=== PATIENT | female | born 1985 | race Caucasian/White ===

== ENCOUNTER 2016-09-17 06:05 | Day surgery (SDC) | payer OTHER ==
[2016-09-17] MEDS ORDERED: SCOPOLAMINE PATCH TOP ONE (06:28)
[2016-09-17] MEDS ORDERED: ceFAZolin 2 GM/50 ML 50 ML IV ONE (06:28)
[2016-09-17] MEDS ORDERED: CELECOXIB 100 MG CAPSULE PO ONE (06:29)
[2016-09-17] MEDS ORDERED: ACETAMINOPHEN 1,000 MG/100 ML 100 ML IV ONE (06:56)
[2016-09-17] MEDS ORDERED: LACTATED RINGERS 1,000 ML IV ONE ×2 (07:14→09:26)
[2016-09-17] MEDS ORDERED: ONDANSETRON 4 MG/2 ML VIAL IVP ONE (07:47)
[2016-09-17] MEDS ORDERED: ACETAMINOPHEN 1,000 MG/100 ML VIAL IV ONE (07:47)
[2016-09-17] MEDS ORDERED: LIDOCAINE-MPF 2% 5 ML VIAL IM ONE (07:47)
[2016-09-17] MEDS ORDERED: DEXAMETHASONE 4 MG/ML VIAL IVP ONE (07:47)
[2016-09-17] MEDS ORDERED: MIDAZOLAM 2 MG/2 ML VIAL IVP ONE (07:47)
[2016-09-17] MEDS ORDERED: ceFAZolin 2 GM/50 ML BAG IV ONE (07:47)
[2016-09-17] MEDS ORDERED: PROPOFOL 200 MG/20 ML VIAL IVP ONE (07:47)
[2016-09-17] MEDS ORDERED: fentaNYL 250 MCG/5 ML VIAL IVP ONE (07:47)
[2016-09-17] MEDS ORDERED: ROPIVACAINE 0.5% PF 20 ML AMPULE EP ONE (07:47)
[2016-09-17] MEDS: HYDROmorphone 1 MG/ML SYRINGE ONE ×4 (09:45→10:20)
[2016-09-17] MEDS ORDERED: ONDANSETRON 4 MG/2 ML VIAL ONE (10:09)
[2016-09-17] MEDS ORDERED: oxyCOD/ACETAMIN 5 MG/325 MG TABLET PO ONE (11:10)
== END 2016-09-17 06:06 | disposition home or self-care (01) ==
PROC: 0QSJ04Z Reposition Right Fibula with Internal Fixation Device, Open Approach (ICD-10-PCS; principal; 2016-09-17 07:30)
DX: S82.61XA Displaced fracture of lateral malleolus of right fibula, initial encounter for closed fracture (principal); W01.0XXA Fall on same level from slipping, tripping and stumbling without subsequent striking against object, initial encounter
CPT/HCPCS: 27792; 73600; 73610; 81025; A9270; C1713; J0131; J0690; J1170; J3010; J3490; J7120

== ENCOUNTER 2016-11-23 18:26 | Emergency (ER) | payer OTHER ==
[2016-11-23] MEDS ORDERED: HYDROmorphone 1 MG/ML SYRINGE IVP STA ×2 (19:00→20:29)
[2016-11-23] MEDS ORDERED: SODIUM CHLORIDE 0.9% 1,000 ML IV ONE (19:00)
[2016-11-23] MEDS ORDERED: ONDANSETRON 4 MG/2 ML VIAL IVP STA (19:00)
[2016-11-23] MEDS ORDERED: HYDROmorphone 1 MG/ML SYRINGE ONE ×2 (19:21→20:32)
[2016-11-23] MEDS ORDERED: ONDANSETRON 4 MG/2 ML VIAL ONE (19:21)
[2016-11-23] MEDS ORDERED: IOPAMIDOL-300 100 ML VIAL IVP ONE (20:27)
[2016-11-23] MEDS ORDERED: diazePAM INJ 5 MG/ML SYRINGE IVP STA (21:06)
[2016-11-23] MEDS ORDERED: LORazepam 0.5 MG TABLET PO STA (21:06)
[2016-11-23] MEDS ORDERED: LORazepam 0.5 MG TABLET ONE (21:18)
[2016-11-23] MEDS ORDERED: diazePAM INJ 5 MG/ML SYRINGE ONE (21:18)
== END 2016-11-23 21:41 | disposition home or self-care (01) ==
DX: R11.2 Nausea with vomiting, unspecified (principal); R10.31 Right lower quadrant pain; R03.0 Elevated blood-pressure reading, without diagnosis of hypertension; M79.7 Fibromyalgia; K58.9 Irritable bowel syndrome, unspecified; N80.9 Endometriosis, unspecified; G47.30 Sleep apnea, unspecified
CPT/HCPCS: 36415; 74177; 80053; 80306; 81003; 81025; 82803; 83690; 85025; 96361; 96374; 96375; 96376; 99284; A9270; J1170; Q9967

== ENCOUNTER 2018-11-11 10:50 | Outpatient (CLI) | payer OTHER ==
--- NOTE | 2018-11-11 21:59 | MRI Report ---
Reason: PAIN IN RIGHT FOOT Procedure Date: 11/11/2018 Accession Number: [id number] / [id number] Procedure: MRI - Ankle RT W/O CPT Code: FULL RESULT: EXAM: RIGHT ANKLE/HINDFOOT MRI WITHOUT CONTRAST. EXAM DATE: 11/11/2018 11:42 AM. CLINICAL HISTORY: Right foot and ankle pain. Past history of ankle surgery. COMPARISON: ANKLE 2 VIEW RT 09/17/2016 11:27 AM ANKLE 3 VIEW RT 09/17/2016 10:33 AM. TECHNIQUE: Multiplanar, multisequence T1-weighted and fluid-sensitive sequences of the ankle/hindfoot without contrast. Other: None. FINDINGS: Bones: There is artifact in the distal fibula, consistent with prior internal fixation of a distal fibula fracture. The fracture has healed. There is no marrow edema. Articular Cartilage: Unremarkable. Ligaments: There is thickening of the anterior tibiofibular ligament, suggestive of a prior partial thickness tear. The posterior tibiofibular ligament and anterior talofibular ligament appear normal. There is an old partial thickness tear of the posterior talofibular ligament. There is no partial thickness tear of the calcaneofibular ligament with focal sclerosis and bony overgrowth at the tip of the lateral malleolus. The deep and superficial deltoid and spring ligaments are intact. Anterior Tendons: The tibialis anterior, extensor hallucis longus, and extensor digitorum longus tendons are unremarkable. Medial Tendons: The tibialis posterior, flexor digitorum longus, and flexor hallucis longus tendons are unremarkable. Lateral Tendons: The peroneus brevis and longus are unremarkable. Achilles Tendon: The Achilles tendon is unremarkable. Musculature: No edema or fatty atrophy. Other: Moderate-sized joint effusion. The contents of the sinus tarsi and tarsal tunnel are unremarkable. No plantar fasciitis. The subcutaneous tissues are unremarkable. IMPRESSION: 1. Moderate-sized ankle joint effusion. 2. Old partial thickness tear of the anterior tibiofibular, posterior talofibular and calcaneofibular ligaments. 3. Healed distal fibula fracture. [facility] MUSCULOSKELETAL RADIOLOGY SECTION
== END 2018-11-11 10:51 | disposition home or self-care (01) ==
LOC: DI 10:50
PROVIDERS: ATTEND Orthopaedic Surgery
DX: M79.671 Pain in right foot (principal); M25.471 Effusion, right ankle; S93.411A Sprain of calcaneofibular ligament of right ankle, initial encounter; S93.491A Sprain of other ligament of right ankle, initial encounter; S93.431A Sprain of tibiofibular ligament of right ankle, initial encounter

== ENCOUNTER 2019-01-01 15:22 | Emergency (ER) | payer OTHER ==
[2019-01-01 15:48] LABS: BASOPHILS # (AUTO) 0.1 10^3/uL (0.0-0.1); BASOPHILS % (AUTO) 0.8 %; EOSINOPHILS # (AUTO) 0.1 10^3/uL (0.0-0.7); EOSINOPHILS % (AUTO) 1.5 %; HGB - HEMOGLOBIN 13.3 g/dL (12.0-16.0); LYMPHOCYTES # (AUTO) 2.4 10^3/uL (1.5-3.5); LYMPHOCYTES % (AUTO) 31.1 %; MEAN CORPUSCULAR HEMOGLOBIN 31.4 pg (27.0-31.0); MEAN CORPUSCULAR HGB CONC 33.2 g/dL (32.0-36.0); MEAN CORPUSCULAR VOLUME 94.8 fL (81.0-99.0); MEAN PLATELET VOLUME 8.1 fL (7.9-10.8); MONOCYTES # (AUTO) 0.6 10^3/uL (0.0-1.0); MONOCYTES % (AUTO) 7.2 %; NEUTROPHILS # (AUTO) 4.6 10^3/uL (1.5-6.6); NEUTROPHILS % (AUTO) 59.4 %; PLT - PLATELET COUNT 263 10^3/uL (130-450); RED BLOOD COUNT 4.24 10^6/uL (4.20-5.40); RED CELL DISTRIBUTION WIDTH 14.1 % (12.0-15.0); WHITE BLOOD COUNT 7.8 x10^3/uL (4.8-10.8)
[2019-01-01 15:48] LABS: BILIRUBIN,URINE NEGATIVE (NEGATIVE); GLUCOSE, URINE (UA) NEGATIVE (NEGATIVE); KETONES,URINE (UA) NEGATIVE (NEGATIVE); LEUKOCYTE ESTERASE, URINE NEGATIVE (NEGATIVE); NITRITE,URINE NEGATIVE (NEGATIVE); OCCULT BLOOD,URINE NEGATIVE (NEGATIVE); PH,URINE 5.5 PH (5.0-7.5); PROTEIN,URINE NEGATIVE (NEGATIVE); UROBILINOGEN,URINE 0.2 (NORMAL) E.U./dL (NORMAL)
[2019-01-01 15:51] LABS: CLARITY,URINE CLEAR (CLEAR)
--- NOTE | 2019-01-01 15:55 | ED Physician Documentation ---
PD HPI ABD PAIN - Stated complaint Stated Complaint: PELVIC/LOWER BACK PX - Chief complaint Chief Complaint: Abd Pain - History obtained from History obtained from: Patient, Other (Dr Alexander called me [employer], feels likely increase in chronic pain but need to R/O perf) - History of Present Illness Timing - onset: Other (Reportedly normal colonoscopy at [facility] 2 days ago and subsequently a few hours after discharge developed severe lower abdominal pain especially on the right lower quadrant. Her bowel movements are back to normal which are chronically diarrhea for her. No vomiting or fevers. She does have chronic abdominal and pelvic pain.) Review of Systems Ten Systems: 10 systems reviewed and negative Constitutional: reports: Reviewed and negative Cardiac: reports: Reviewed and negative Respiratory: reports: Reviewed and negative PD PAST MEDICAL HISTORY - Past Medical History Cardiovascular: None Respiratory: Sleep apnea Endocrine/Autoimmune: None GI: Other : Other HEENT: Other Psych: Depression Musculoskeletal: Fibromyalgia, Chronic back pain Derm: None - Past Surgical History Past Surgical History: Yes /CLAIM CLERK: section - Present Medications Home Medications: Ambulatory Orders Medication Instructions Recorded Confirmed Sertraline HCl [Zoloft] 100 mg PO DAILY 09/17/16 11/23/16 Tizanidine HCl [Zanaflex] 4 mg PO DAILY 09/17/16 11/23/16 Rizatriptan Benzoate [Maxalt] 10 mg PO DAILY 11/23/16 11/23/16 Ibuprofen [Motrin] 800 mg PO Q8H PRN #30 tablet 01/01/19 Oxycodone HCl/Acetaminophen 1 - 2 each PO Q6H PRN #14 tablet 01/01/19 [Percocet 5-325 mg Tablet] - Allergies Allergies/Adverse Reactions: Allergies Allergy/AdvReac Type Severity Reaction Status Date / Time No Known Drug Allergies Allergy Verified 01/01/19 15:32 - Social History Does the pt smoke?: No Smoking Status: Never smoker - Family History Family history: reports: Non contributory PD ED PE NORMAL - Vitals Vital signs reviewed: Yes - General General: Alert and oriented X 3, Other (sl uncomfortable) - HEENT HEENT: PERRL, EOMI - Neck Neck: Supple, no meningeal sign, No bony TTP - Cardiac Cardiac: RRR, No murmur - Respiratory Respiratory: No respiratory distress, Clear bilaterally - Abdomen Abdomen: Other (Diminished bowel tones, mild lower abdominal tenderness especially in the right lower quadrant without surgical signs.) - Back Back: No CVA TTP, No spinal TTP - Derm Derm: Normal color, Warm and dry - Extremities Extremities: No edema, No calf tenderness / cord - Neuro Neuro: Alert and oriented X 3, Normal speech Results - Vitals Vitals: Vital Signs - 24 hr 01/01/19 15:28 Temperature 36.5 C Heart Rate 103 H Respiratory 17 Rate Blood Pressure 146/100 H O2 Saturation 99 Oxygen O2 Source Room air - Labs Labs: Laboratory Tests 01/01/19 01/01/19 01/01/19 15:00 15:00 15:11 WBC 7.8 RBC 4.24 Hgb 13.3 Hct 40.2 MCV 94.8 MCH 31.4 H MCHC 33.2 RDW 14.1 Plt Count 263 MPV 8.1 Neut # (Auto) 4.6 Lymph # (Auto) 2.4 [place] # (Auto) 0.6 Eos # (Auto) 0.1 Baso # (Auto) 0.1 Absolute Nucleated RBC 0.00 Nucleated RBC % 0.0 Sodium Potassium Chloride Carbon Dioxide Anion Gap BUN Creatinine Estimated GFR (MDRD) Glucose Calcium Total Bilirubin AST ALT Alkaline Phosphatase Total Protein Albumin Globulin Albumin/Globulin Ratio Lipase Urine Color YELLOW Urine Clarity CLEAR Urine pH 5.5 Ur Specific [place] 1.010 1.010 Urine Protein NEGATIVE Urine Glucose (UA) NEGATIVE Urine Ketones NEGATIVE Urine Occult Blood NEGATIVE Urine Nitrite NEGATIVE Urine Bilirubin NEGATIVE Urine Urobilinogen 0.2 (NORMAL) Ur Leukocyte Esterase NEGATIVE Ur Microscopic Review NOT INDICATED Urine Culture Comments NOT INDICATED Urine HCG, Qual NEGATIVE 01/01/19 15:11 WBC RBC Hgb Hct MCV MCH MCHC RDW Plt Count MPV Neut # (Auto) Lymph # (Auto) [place] # (Auto) Eos # (Auto) Baso # (Auto) Absolute Nucleated RBC Nucleated RBC % Sodium 136 Potassium 3.7 Chloride 105 Carbon Dioxide 23 Anion Gap 8.0 BUN 12 Creatinine 0.6 Estimated GFR (MDRD) 116 Glucose 89 Calcium 8.5 Total Bilirubin 0.2 AST 29 ALT 28 Alkaline Phosphatase 47 Total Protein 8.0 Albumin 4.2 Globulin 3.8 Albumin/Globulin Ratio 1.1 Lipase 51 Urine Color Urine Clarity Urine pH Ur Specific [place] Urine Protein Urine Glucose (UA) Urine Ketones Urine Occult Blood Urine Nitrite Urine Bilirubin Urine Urobilinogen Ur Leukocyte Esterase Ur Microscopic Review Urine Culture Comments Urine HCG, Qual - Rads (name of study) CT A/P Radiology: EMP read contemporaneously (R follicle 2.5cm otherwise NAD) PD MEDICAL DECISION MAKING - ED course ED course: 33-year-old woman with right sided abdominal pain radiating to the left and back after a colonoscopy. CT negative for perforation but did have an ovarian cyst which may be causative. Departure - Departure Disposition: 01 Home, Self Care Clinical Impression: Right ovarian cyst Abdominal pain Qualifiers: Abdominal location: right lower quadrant Qualified Code(s): R10.31 - Right lower quadrant pain Condition: Good Record reviewed to determine appropriate education?: Yes Instructions: ED Cyst Ovarian Prescriptions: Ibuprofen [Motrin] 800 mg PO Q8H PRN #30 tablet PRN Reason: PAIN &/OR FEVER Oxycodone HCl/Acetaminophen [Percocet 5-325 mg Tablet] 1 - 2 each PO Q6H PRN #14 tablet PRN Reason: pain Comments: Call your doctor to arrange a follow-up appointment, make the next available appointment. In the interim, return anytime if worse or if new symptoms develop. Your blood pressure was elevated today on check into the emergency department. This does not mean that you have hypertension, it is a common phenomenon to come to the emergency department and have elevated blood pressure. I recommend that you see your primary care physician within the week to have it rechecked when you are feeling better. Do not drink or drive while taking narcotic pain medication. Note that many narcotic pain relievers also contain Tylenol/acetaminophen. Please ensure that your total dose of acetaminophen from all sources does not exceed 3 g (3000 mg) per day. You may get constipated while on this medication. Take a stool softener such as Colace twice a day while you are on it. Also add an [id number] laxative such as senna or MiraLAX on any day that you do not have a bowel movement. If you received a narcotic pain medication or sedative while in the emergency department, do not drive for the next 24 hours. As discussed you have a right ovarian cyst, 2.5 cm. [place] is likely he will want to get a repeat ultrasound in 4 to 6 weeks to make sure it has resolved.
[2019-01-01] MEDS ORDERED: HYDROmorphone 1 MG/ML CARPUJECT IVP STA ×2 (15:56→16:54)
[2019-01-01 16:00] LABS: ALBUMIN 4.2 g/dL (3.2-5.5); ALBUMIN/GLOBULIN RATIO 1.1 (1.0-2.2); BILIRUBIN,TOTAL 0.2 mg/dL (0.2-1.0); CALCIUM 8.5 mg/dL (8.5-10.3); CREATININE 0.6 mg/dL (0.4-1.0)
[2019-01-01] MEDS ORDERED: IOVERSOL 320 100 ML VIAL IVP ONE ×2 (16:08→16:15)
[2019-01-01 16:16] LABS: HCG UR QUAL NEGATIVE
--- NOTE | 2019-01-01 16:53 | CT Report ---
Reason: IV only, post c-scope pain Procedure Date: 01/01/2019 Accession Number: [id number] / [id number] Procedure: CT - Abdomen/Pelvis W CPT Code: FULL RESULT: EXAM: CT ABDOMEN AND PELVIS EXAM DATE: 01/01/2019 04:24 PM. CLINICAL HISTORY: IV only, post c-scope pain. History of endometriosis. Recent colonoscopy. Pelvic and abdominal pain. COMPARISONS: ABDOMEN/PELVIS W/ 11/23/2016 8:08 PM. TECHNIQUE: Routine helical CT imaging was performed through the abdomen and pelvis. IV contrast: OPTI 320 90 ML. Enteric contrast: No. Reconstructions: Coronal and sagittal. In accordance with CT protocol optimization, one or more of the following dose reduction techniques were utilized for this exam: automated exposure control, adjustment of mA and/or KV based on patient size, or use of iterative reconstructive technique. FINDINGS: Lung bases: No acute findings. Liver: Unremarkable. Gallbladder: Unremarkable. Bile ducts: Unremarkable. Pancreas: Unremarkable. Spleen: Unremarkable. Adrenals: Unremarkable. Kidneys: Unremarkable. Bowel: Normal appendix. No acute bowel findings are seen. Trace free fluid in the posterior cul-de-sac, could be physiologic. No free air. Pelvis: The bladder is unremarkable. Uterus is anteverted. Corpus luteum seen in the right ovary measuring 2.8 cm. Dominant follicle in the right ovary measuring 2.6 cm. Vasculature: No acute findings. Bones: No acute bone findings. IMPRESSION: 1. Corpus luteum seen the right ovary measuring 2.8 cm. Dominant follicle in the right ovary measuring 2.6 cm. Within normal limits. 2. Trace free fluid in the posterior cul-de-sac, could be physiologic. No free air. No acute bowel findings are seen. Normal appendix. [facility]
[2019-01-01] MEDS ORDERED: KETOROLAC 30 MG/ML VIAL IVP STA (16:54)
[2019-01-01 17:40] VITALS: BP 138/88
== END 2019-01-01 17:41 | disposition home or self-care (01) ==
LOC: ED 15:22
DX: N83.11 Corpus luteum cyst of right ovary (principal); R10.31 Right lower quadrant pain; R03.0 Elevated blood-pressure reading, without diagnosis of hypertension; Z98.890 Other specified postprocedural states
CPT/HCPCS: 36415; 74177; 80053; 81003; 81025; 83690; 85025; 96374; 96375; 99283; 99284; J1170; Q9967; 81001; 87086

== ENCOUNTER 2019-01-23 12:27 | Outpatient (CLI) | payer OTHER ==
--- NOTE | 2019-01-25 11:31 | MRI Report ---
Reason: LOW BACK PAIN Procedure Date: 01/23/2019 Accession Number: [id number] / [id number] Procedure: MRI - Lumbar Spine W/O CPT Code: FULL RESULT: EXAM: MRI LUMBAR SPINE WITHOUT CONTRAST EXAM DATE: 01/23/2019 01:15 PM. CLINICAL HISTORY: Low back and left leg pain. COMPARISON: None. TECHNIQUE: Multiplanar, multisequence T1-weighted and fluid-sensitive sequences of the lumbar spine from T12 to S1 without contrast. Other: None. FINDINGS: Spinal Canal: The conus terminates at L1-L2. The conus medullaris and cauda equina are unremarkable. Alignment: Mild levoconvex scoliosis. Bone Marrow: Five [id number] lumbar vertebral bodies are assumed. Small hemangioma at the T11 vertebral body. Disk Levels/Facets: L5-S1: Mild to moderate disk space narrowing. Small broad-based posterior central to left paracentral disk protrusion which mildly abuts the ventral aspect of the thecal sac. No stenoses. L4-L5, L3-L4, L2-L3, L1-L2, and T12-L1: Unremarkable. Musculature: Normal. No edema or fatty atrophy. Other: The partially visualized retroperitoneum is unremarkable. IMPRESSION: 1. Small broad-based posterior central to left paracentral disk protrusion at L5-S1. No stenoses. Comment: The following findings are so common in adults without low back pain that while we report their presence, they must be interpreted with caution and in the context of the clinical situation. (Reference Preciousk et al, Spine 2001) Prevalence of findings in patients without low back pain: Disk degeneration (any evidence): 92% Disk desiccation/T2 signal loss: 83% Disk height loss: 56% Disk bulge: 64% Disk protrusion: 32% Annular tear/high intensity zone: 38% [facility]
== END 2019-01-23 12:28 | disposition home or self-care (01) ==
LOC: DI 12:27
PROVIDERS: ATTEND Family Medicine
DX: M51.27 Other intervertebral disc displacement, lumbosacral region (principal)
CPT/HCPCS: 72148